=== PATIENT | male | born 1985 | race Caucasian/White ===

== ENCOUNTER → 2018-01-24 | Emergency (ER) | payer BC ==
[~2018-01-24] VITALS: Ht 177.8 cm; Wt 134.0 kg
[~2018-01-24] MED LIST: ALBU8.5H8 IH; ALBU8HFA PO; PROP10TA10 PO
[2018-01-24 14:47] VITALS: BP 131/89
== END | disposition home or self-care (01) ==
LOC: ER 14:44
DX: M54.2 Cervicalgia (principal); R07.89 Other chest pain; R42 Dizziness and giddiness; E78.00 Pure hypercholesterolemia, unspecified; I10 Essential (primary) hypertension; J45.909 Unspecified asthma, uncomplicated; Z79.899 Other long term (current) drug therapy
CPT/HCPCS: 99281

== ENCOUNTER 2019-01-27 03:38 | Emergency (ER) | payer BC ==
[~2019-01-27] VITALS: Ht 177.8 cm; Wt 131.8 kg
[2019-01-27 03:50] VITALS: BP 125/77
== END 2019-01-27 04:08 | disposition home or self-care (01) ==
LOC: ER 03:40
DX: F10.929 Alcohol use, unspecified with intoxication, unspecified (principal); F41.9 Anxiety disorder, unspecified; E78.00 Pure hypercholesterolemia, unspecified; I10 Essential (primary) hypertension; J45.909 Unspecified asthma, uncomplicated; Z79.899 Other long term (current) drug therapy; Y90.9 Presence of alcohol in blood, level not specified
CPT/HCPCS: 93005; 99283

== ENCOUNTER 2019-04-26 04:15 | Emergency (ER) | payer BC ==
[~2019-04-26] VITALS: Ht 177.8 cm; Wt 131.0 kg
[2019-04-26 04:21] VITALS: BP 153/99
[2019-04-27] MEDS ORDERED: PROP60TA19 PO (21:09)
== END 2019-04-26 05:18 | disposition home or self-care (01) ==
LOC: ER 04:18
DX: T18.8XXA Foreign body in other parts of alimentary tract, initial encounter (principal); E78.00 Pure hypercholesterolemia, unspecified; I10 Essential (primary) hypertension; J45.909 Unspecified asthma, uncomplicated; G47.30 Sleep apnea, unspecified; Z79.899 Other long term (current) drug therapy; Z98.890 Other specified postprocedural states; Z98.0 Intestinal bypass and anastomosis status; X58.XXXA Exposure to other specified factors, initial encounter; Y93.89 Activity, other specified; Y92.89 Other specified places as the place of occurrence of the external cause; Y99.8 Other external cause status
CPT/HCPCS: 71046; 74021; 99283

== ENCOUNTER 2019-04-27 19:51 | Emergency (ER) | payer BC ==
[~2019-04-27] VITALS: Ht 177.8 cm; Wt 131.0 kg
[2019-04-27] MEDS ORDERED: PROP60TA19 PO (21:09)
[2019-04-27 21:15] VITALS: BP 138/78
== END 2019-04-27 21:19 | disposition home or self-care (01) ==
LOC: ER 19:52
DX: T18.8XXA Foreign body in other parts of alimentary tract, initial encounter (principal); I10 Essential (primary) hypertension; E78.00 Pure hypercholesterolemia, unspecified; J45.909 Unspecified asthma, uncomplicated; G47.30 Sleep apnea, unspecified; F10.99 Alcohol use, unspecified with unspecified alcohol-induced disorder; Z98.890 Other specified postprocedural states; Z79.899 Other long term (current) drug therapy; X58.XXXA Exposure to other specified factors, initial encounter; Y93.89 Activity, other specified; Y92.89 Other specified places as the place of occurrence of the external cause; Y99.8 Other external cause status; Y90.9 Presence of alcohol in blood, level not specified
CPT/HCPCS: 74018; 99283